=== PATIENT | male | born 1955 | race African-American/Black ===

== ENCOUNTER 2017-11-30 22:46 | Emergency (ER) | payer MEDICARE, OTHER, SELFPAY ==
[2017-11-30 22:52] VITALS: BP 156/73; PULSE 90; RESP 20; TEMP 37.9; O2SAT 96; BMI 38.7
--- NOTE | 2017-11-30 22:54 | ED.MALEGU ---
HPI - Male Genitourinary General Chief complaint: Urogenital-Male Stated complaint: SWELLING AND PAIN IN TESTICLES Time Seen by Provider: 11/30/17 22:54 Source: patient Mode of arrival: ambulatory Limitations: no limitations History of Present Illness HPI Narrative: Patient presents to the emergency department today with a chief complaint of bilateral testicular swelling (left greater than right) and pain for the past few days. He denies any injury nor fever or chills. He denies any dysuria, frequency or urgency. He denies any history of the same. MD Complaint: testicle pain and testicle swelling Onset (ago): day(s) Duration: constant Location: right testicle and left testicle Severity: moderate Quality: aching Exacerbating factors: none Reports denies other symptoms Related Data Previous Rx's Medication Instructions Recorded ciprofloxacin HCl 500 mg PO BID 14 Days #28 tab 12/01/17 Allergies Allergy/AdvReac Type Severity Reaction Status Date / Time Iodine Allergy Unknown Uncoded 10/08/17 11:58 Review of Systems Review of Systems All systems reviewed & are unremarkable except as noted in HPI and below Constitutional Denies chills, Denies fever(s), Denies lethargy and Denies weakness Eyes Denies change in vision, Denies eye discharge, Denies irritation and Denies loss of vision ENT Ears, Nose, Mouth, and Throat: Denies change in voice, Denies neck pain and Denies sore throat Cardiovascular Denies chest pain, Denies irregular heart rhythm, Denies lightheadedness, Denies palpitations, Denies dyspnea, Denies dyspnea on exertion and Denies orthopnea Respiratory Denies cough, Denies dyspnea, Denies dyspnea on exertion and Denies wheezing Gastrointestinal Gastrointestinal: Denies abdominal pain, Denies change in bowel habits, Denies diarrhea, Denies nausea and Denies vomiting Genitourinary Denies hematuria, Denies flank pain, Reports scrotal swelling, Reports testicular mass, Reports testicular pain, Denies urinary incontinence and Denies urinary urgency Musculoskeletal Denies neck pain Integumentary/Breasts Denies pruritus, Denies erythema, Denies rash and Denies wounds Neurologic Denies confusion, Denies loss of vision and Denies weakness Psychiatric Denies anxiety, Denies confusion, Denies depression, Denies homicidal ideation and Denies suicidal ideation Endocrine Denies palpitations Hematologic/Lymphatic Denies easy bruising Allergic/Immunologic Denies wheezing [facility] Medical History Diabetes 1.5, managed as type 2 (Acute) GERD (gastroesophageal reflux disease) (Acute) HTN (hypertension) (Acute) Kidney disease (Acute) Neuropathy (Acute) PAD (peripheral artery disease) (Acute) Social History Smoking Status: Former smoker Exam Narrative Exam Narrative: Pleasant 62-year-old male in no obvious distress Initial Vital Signs Initial Vital Signs: Vital Signs Temperature 100.2 F H 11/30/17 22:52 Pulse Rate 90 11/30/17 22:52 Respiratory Rate 20 11/30/17 22:52 Blood Pressure 156/73 H 11/30/17 22:52 Pulse Oximetry 96 11/30/17 22:52 Const General: cooperative and well developed Nutritional Appearance: well nourished Orientation: alert, awake, oriented x3 and not confused Resp Effort & Inspection: normal respiratory effort, able to speak in complete sentences, no respiratory distress and no use of accessory muscles Auscultation: clear to auscultation bilaterally, no rales, no rhonchi and no wheezes GI Inspection: non-distended Palpation: soft, no hepatosplenomegaly, No guarding, No pulsatile mass and No tender Auscultation: normal bowel sounds Scrotum: scrotal swelling (Examined in standing position.) bilaterally Testes: testicular swelling and testicular tenderness Course Orders Ordered: ED Orders 11/30/17 23:14 US scrotum Stat 11/30/17 23:29 Urine Culture Stat Urine Microscopic Stat 11/30/17 23:34 Basic Metabolic Panel Stat Complete Blood Count AUTO DIFF Stat Prolactin Stat Discontinued Medications Levofloxacin (Levaquin) 500 mg PO NOW ONE Stop: 12/01/17 00:51 Last Admin: 12/01/17 01:07 Dose: 500 mg Consultations Consultation #1: Have spoken with Dr. Rios at [facility] urology. We discussed the patient's history and physical exam findings as well as lab results and ultrasound findings. His recommendation his of fluoroquinolones for 2 weeks with follow-up at primary care 1st and Urology for no improvement Vital Signs - 8 hr 11/30/17 22:52 Temperature 100.2 F H Pulse Rate 90 Respiratory Rate 20 Blood Pressure 156/73 H Pulse Oximetry 96 MDM - Male Genitourinary Differential Diagnosis Likely urinary tract infection, urethritis, epididymitis, prostatitis, acute retention of urine and inguinal hernia Lab Data Attestation: I reviewed the patient's lab results. Result diagrams: 11/30/17 23:34 11/30/17 23:34 Lab Results 11/30/17 11/30/17 11/30/17 Range/Units 23:29 23:34 23:34 WBC 13.1 H (4.5-11.0) X10^3/uL RBC 4.85 (4.5-5.9) X10^6/uL Hgb 13.7 (13.5-17.5) g/dL Hct 41.1 (41-53) % MCV 84.8 (80-100) fL MCH 28.2 (26-34) PG MCHC 33.3 (30-36) % RDW 16.5 H (11.6-14.8) % Plt Count 168 (150-400) X10^3/uL Neut % (Auto) 73.2 (50-75) % Lymph % (Auto) 15.3 L (25-40) % [place] % (Auto) 8.0 (3-14) % Eos % (Auto) 2.5 (2-4) % Baso % (Auto) 1.0 (0-2) % Neut # (Auto) 9600 H (1655-5306) /uL Sodium 142 (137-145) mmol/L Potassium 3.8 (3.4-5.1) mmol/L Chloride 96 L (98-107) mmol/L Carbon Dioxide 34 H (22-32) mmol/L BUN 29 H (9-20) mg/dL Creatinine 1.80 H (0.66-1.25) mg/dL Estimated GFR 38.7 L (>60) mL/min BUN/Creatinine Ratio 16.1 (6-22) Glucose 224 H (80-110) mg/dL Calcium 10.1 (8.4-10.2) mg/dL Prolactin 15.6 (3.7-17.9) ng/mL Urine RBC 0-1/hpf (0-5/HPF) Urine WBC 0-1/hpf (0-5/HPF) Urine Bacteria Many (>30) H (None) Ur Culture Indicated? Specimen cultured Micro UA Comment Not Reportable Imaging Data Testicular US: Radiologist's impression: Findings concerning for bilateral orchitis and left-sided epididymitis. Scrotal wall skin thickening suggests edema versus cellulitis. No findings to suggest torsion. Small bilateral hydroceles larger on left and right Discharge Plan Departure Patient Disposition: Home, Self-Care Clinical Impression: Acute epididymitis, Acute orchitis Instructions: DI for Epididymitis Activity Restrictions/Additional Instructions: *You have been diagnosed with [ acute epididymitis with bilateral orchitis ] *What to do: *Take medications as directed *Follow up with your primary care provider, call later today for an appointment. Additionally, I have provided contact information for [facility]. I consulted Dr. Landry of Urology while you were in the ER. Should you choose to follow up with [facility] at the [facility], [place] please call [phone] *Return to ER if you should have any new, worsening or concerning symptoms Prescriptions: New ciprofloxacin HCl 500 mg tablet 500 mg PO BID 14 Days Qty: 28 RF: 0 Referrals: Brien Laurent MD [Non-Staff] -
--- NOTE | 2017-11-30 23:14 | DI.US.S_ITS ---
PROCEDURE: US SCROTUM INDICATIONS: 62 year-old male with painful bilateral testicular swelling, without injury. TECHNIQUE: Real-time scanning was performed of the scrotum and testicles, with image documentation. Color and pulse Doppler interrogation was performed of both testicles. COMPARISON: None. FINDINGS: Preliminary interpretation rendered by [facility]. Right: Testicle is normal in size at 4.4 x 2.8 x 2.7 cm, and homogenous in echotexture. Epididymis is normal in overall size and morphology. There is trace hydrocele; no varicoceles. Overlying scrotal skin is diffusely thickened. Left: Testicle is normal in size at 3.9 x 3.5 x 2.5 cm, and homogeneous in echotexture. Epididymis is normal in overall size and morphology. There is small hydrocele; no varicoceles. Overlying scrotal skin is diffusely thickened. Doppler: Color and pulse Doppler demonstrate symmetrically increased arterial flow in both testicles. There is also asymmetrically increased vascular flow in the left epididymis. IMPRESSION: 1. Findings worrisome for left epididymitis and bilateral orchitis, with overlying bilateral reactive scrotal skin thickening versus concomitant cellulitis. 2. Small left and trace right scrotal hydroceles. No significant discrepancy with preliminary [employer] report. Dictated by: Ulysses Navarro M.D. on 12/01/2017 at 7:52 Approved by: Ulysses Navarro M.D. on 12/01/2017 at 7:57
[2017-11-30 23:41] LABS: Add Manual Diff / Slide Review NO; Eosinophils Percent Auto 2.5 % (2-4); Hematocrit 41.1 % (41-53); Hemoglobin 13.7 g/dL (13.5-17.5); Lymphocytes Percent Auto 15.3 % (25-40); Mean Corpuscular HGB Conc 33.3 % (30-36); Mean Corpuscular Hemoglobin 28.2 PG (26-34); Mean Corpuscular Volume 84.8 fL (80-100); Neutrophils Absolute Auto 9600 /uL (3000-5900); Neutrophils Percent Auto 73.2 % (50-75); Platelet Count 168 X10^3/uL (150-400); Red Blood Cell Count 4.85 X10^6/uL (4.5-5.9); Red Cell Distribution Width 16.5 % (11.6-14.8); White Blood Cell Count 13.1 X10^3/uL (4.5-11.0)
[2017-11-30 23:44] LABS: Bacteria Urine Many (>30); Culture Indicated Urine Specimen Cultured; RBC Urine 0-1/HPF (0-5/HPF); WBC Urine 0-1/HPF (0-5/HPF)
[2017-11-30 23:53] LABS: BUN Creatinine Ratio 16.1 (6-22); Blood Urea Nitrogen 29 mg/dL (9-20); Calcium 10.1 mg/dL (8.4-10.2); Carbon Dioxide 34 mmol/L (22-32); Chloride 96 mmol/L (98-107); Estimated Glomerular Filt Rate 38.7 mL/min (>60); Glucose 224 mg/dL (80-110); HEMOLYSIS < 15 (0-50); Potassium 3.8 mmol/L (3.4-5.1); Sodium 142 mmol/L (137-145)
[2017-12-01 00:10] LABS: Prolactin 15.6 ng/mL (3.7-17.9)
[2017-12-01] MEDS: levoFLOXacin 500 MG TABLET PO (01:07)
[2017-12-01 01:33] VITALS: BP 157/79; PULSE 92; RESP 18; O2SAT 97
--- NOTE | 2017-12-01 01:34 | PC.NURSE ---
drawn by lab
== END 2017-12-01 01:35 | disposition home or self-care (01) ==
PROVIDERS: Emergency Provider Emergency Medicine
DX: N45.1 Epididymitis (principal); N45.2 Orchitis
CPT/HCPCS: 36415; 76870; 80048; 81003; 81015; 84146; 85025; 87077; 87086; 87186; 99282; 99284

== ENCOUNTER 2018-02-21 20:10 | Emergency (ER) | payer MEDICARE, OTHER, SELFPAY ==
[2018-02-21 20:15] VITALS: BP 149/77; PULSE 66; RESP 18; TEMP 36.3; O2SAT 96; BMI 38.9
--- NOTE | 2018-02-21 20:50 | ED.BACK ---
HPI - Back Pain/Injury General Chief Complaint: Back Pain/Injury Stated Complaint: PAIN RIB AND BACK Time Seen by Provider: 02/21/18 20:50 Related Data Home Medications Medication Instructions Recorded Confirmed amlodipine 10 mg PO BID 02/21/18 02/21/18 aspirin 81 mg DAILY 02/21/18 02/21/18 atorvastatin 02/21/18 carvedilol BID 02/21/18 clonidine HCl BID 02/21/18 clonidine HCl BID 02/21/18 fenofibrate nanocrystallized 02/21/18 [Triglide] furosemide BID 02/21/18 gabapentin 02/21/18 hydralazine BID 02/21/18 indapamide QAM 02/21/18 insulin aspart U-100 [Novolog 30 unit AC 02/21/18 02/21/18 U-100 Insulin aspart] insulin glargine [Lantus U-100 40 unit QPM 02/21/18 02/21/18 Insulin] insulin glargine [Lantus U-100 76 unit QAM 02/21/18 02/21/18 Insulin] metformin 1,000 mg PO BID 02/21/18 02/21/18 nitroglycerin 0.4 mg SUBLINGUAL Q5-15M PRN 02/21/18 02/21/18 omeprazole 2 tab 02/21/18 potassium chloride [Klor-Con M20] 3 tab 02/21/18 Allergies Allergy/AdvReac Type Severity Reaction Status Date / Time Iodine Allergy Unknown Uncoded 10/08/17 11:58 PFSH Medical History Diabetes 1.5, managed as type 2 (Acute) GERD (gastroesophageal reflux disease) (Acute) HTN (hypertension) (Acute) Kidney disease (Acute) Neuropathy (Acute) PAD (peripheral artery disease) (Acute) Social History Smoking Status: Former smoker Exam Initial Vital Signs Initial Vital Signs: Vital Signs Temperature 97.4 F L 02/21/18 20:15 Pulse Rate 66 02/21/18 20:15 Respiratory Rate 18 02/21/18 20:15 Blood Pressure 149/77 H 02/21/18 20:15 Pulse Oximetry 96 02/21/18 20:15 Course Vital Signs - 8 hr 02/21/18 20:15 Temperature 97.4 F L Pulse Rate 66 Respiratory Rate 18 Blood Pressure 149/77 H Pulse Oximetry 96 Discharge Plan Departure Prescriptions: No Action atorvastatin 40 mg tablet RF: 0 gabapentin 800 mg tablet RF: 0 carvedilol 25 mg tablet BID RF: 0 aspirin 81 mg tablet,delayed release (DR/EC) 81 mg DAILY RF: 0 fenofibrate nanocrystallized [Triglide] 160 mg tablet RF: 0 insulin glargine [Lantus U-100 Insulin] 100 unit/mL solution 76 unit QAM RF: 0 insulin glargine [Lantus U-100 Insulin] 100 unit/mL solution 40 unit QPM RF: 0 amlodipine 10 mg tablet 10 mg PO BID RF: 0 omeprazole 20 mg capsule,delayed release(DR/EC) 2 tab RF: 0 insulin aspart U-100 [Novolog U-100 Insulin aspart] 100 unit/mL solution 30 unit AC RF: 0 hydralazine 25 mg tablet BID RF: 0 nitroglycerin 0.4 mg Tablet, Sublingual 0.4 mg SUBLINGUAL Q5-15M PRN (Reason: Chest Pain) RF: 0 potassium chloride [Klor-Con M20] 20 mEq tablet,ER particles/crystals 3 tab RF: 0 clonidine HCl 0.2 mg tablet BID RF: 0 clonidine HCl 0.1 mg tablet BID RF: 0 furosemide 40 mg tablet BID RF: 0 indapamide 2.5 mg tablet QAM RF: 0 metformin 500 mg Tablet 1,000 mg PO BID RF: 0
--- NOTE | 2018-02-21 21:52 | PC.NURSE ---
Pt reports right ribs hurt. feels like when they were broken. Increased pain with deep breathing. Lungs clear. Reports pain wraps around to the back. Denies any injury to area.
--- NOTE | 2018-02-21 21:58 | DI.RAD.S_ITS ---
PROCEDURE: XR RIBS RT MIN 3V W CXR 1V INDICATIONS: severe R sided Rib pain, hx fx TECHNIQUE: 4 views of the right ribs were acquired, along with a single view chest. COMPARISON: None. FINDINGS: Surgical changes and devices: None. Bones and chest wall: No fractures or dislocations. No suspicious bony lesions. Overlying soft tissues appear unremarkable. Lungs and pleura: No pleural effusions or pneumothorax. Lungs appear clear. Mediastinum: Mediastinal contours appear normal. Heart size is normal. IMPRESSION: No gross acute right rib fracture. No acute pulmonary pathology. Dictated by: Mark Aldana M.D. on 02/22/2018 at 9:37 Approved by: Mark Aldana M.D. on 02/22/2018 at 9:38
[2018-02-21 22:30] VITALS: BP 143/81; PULSE 64; RESP 18; TEMP 36.7; O2SAT 98
[2018-02-21 22:56] VITALS: BP 150/78; PULSE 66; RESP 14; O2SAT 96
--- NOTE | 2018-02-21 23:34 | ED_ITS ---
HPI - Back Pain/Injury General Chief Complaint: Back Pain/Injury Stated Complaint: PAIN RIB AND BACK Time Seen by Provider: 02/21/18 20:50 Source: patient and family Mode of arrival: ambulatory Limitations: no limitations History of Present Illness HPI Narrative: 62-year-old male with complicated history including hypertension and hyperlipidemia presents with reproducible right-sided rib pain for the past week. He is in the presence of his room as to the story. He states that he had been exerting himself while working on a project at home about a week ago was lifting and pushing heavy objects when he developed this pain. He states the pain is in the region of a formally broken rib. He denies any atypical rash or other symptoms such is dizziness, lightheadedness nor shortness of breath, diaphoresis or vomiting. He states the pain is worse if he presses on it or moves his right arm in addition to taking a deep breath. Denies any specific trauma or other injury. She admittedly is concerned about the rib pain in the absence of an injury because he overheard patient is speaking at the pharmacy whom were talking about a friend that had been diagnosed with lung cancer who is only complaint was rib pain MD Complaint: other Onset (ago): day(s) Duration: constant Similar Symptoms Previously: Yes Severity: moderate Quality: sharp Radiation: flank Severity scale (1-10): 5 Relieving factors: immobilization Exacerbating factors: deep breaths and lifting Associated symptoms: denies other symptoms Related Data Home Medications Medication Instructions Recorded Confirmed amlodipine 10 mg PO BID 02/21/18 02/21/18 aspirin 81 mg DAILY 02/21/18 02/21/18 atorvastatin 40 mg PO DAILY 02/21/18 02/21/18 carvedilol 25 mg PO BID 02/21/18 02/21/18 clonidine HCl 0.1 mg PO BID 02/21/18 02/21/18 clonidine HCl 0.2 mg BID 02/21/18 02/21/18 fenofibrate nanocrystallized 1 tab PO DAILY 02/21/18 02/21/18 [Triglide] furosemide 40 mg PO BID 02/21/18 02/21/18 gabapentin 800 mg PO DAILY 02/21/18 02/21/18 hydralazine 25 mg PO BID 02/21/18 02/21/18 indapamide 1 tab PO QAM 02/21/18 02/21/18 insulin aspart U-100 [Novolog 30 unit AC 02/21/18 02/21/18 U-100 Insulin aspart] insulin glargine [Lantus U-100 40 unit QPM 02/21/18 02/21/18 Insulin] insulin glargine [Lantus U-100 76 unit QAM 02/21/18 02/21/18 Insulin] metformin 1,000 mg PO BID 02/21/18 02/21/18 nitroglycerin 0.4 mg SUBLINGUAL Q5-15M PRN 02/21/18 02/21/18 omeprazole 2 tab PO DAILY 02/21/18 02/21/18 potassium chloride [Klor-Con M20] 3 tab PO DAILY 02/21/18 02/21/18 Allergies Allergy/AdvReac Type Severity Reaction Status Date / Time Iodine Allergy Unknown Uncoded 10/08/17 11:58 Review of Systems Review of Systems All systems reviewed & are unremarkable except as noted in HPI and below Constitutional Denies chills, Denies fever(s), Denies lethargy and Denies weakness Eyes Denies change in vision, Denies eye discharge, Denies irritation and Denies loss of vision ENT Ears, Nose, Mouth, and Throat: Denies change in voice, Denies neck pain and Denies sore throat Cardiovascular Reports chest pain, Denies irregular heart rhythm, Denies lightheadedness, Denies palpitations, Denies dyspnea, Denies dyspnea on exertion and Denies orthopnea Respiratory Denies cough, Denies dyspnea, Denies dyspnea on exertion and Denies wheezing Gastrointestinal Gastrointestinal: Denies abdominal pain, Denies change in bowel habits, Denies diarrhea, Denies nausea and Denies vomiting Genitourinary Denies hematuria, Denies flank pain, Denies urinary incontinence and Denies urinary urgency Musculoskeletal Reports back pain and Denies neck pain Comments: Back pain wraps around from chest Integumentary/Breasts Denies pruritus, Denies erythema, Denies rash and Denies wounds Neurologic Denies confusion, Denies loss of vision and Denies weakness Psychiatric Denies anxiety, Denies confusion, Denies depression, Denies homicidal ideation and Denies suicidal ideation Endocrine Denies palpitations Hematologic/Lymphatic Denies easy bruising Allergic/Immunologic Denies wheezing FOR[facility]LY [facility] Medical History Diabetes 1.5, managed as type 2 (Acute) GERD (gastroesophageal reflux disease) (Acute) HTN (hypertension) (Acute) Kidney disease (Acute) Neuropathy (Acute) PAD (peripheral artery disease) (Acute) Social History Smoking Status: Former smoker Exam Narrative Exam Narrative: 62-year-old male resting comfortably with his Initial Vital Signs Initial Vital Signs: Vital Signs Temperature 97.4 F L 02/21/18 20:15 Pulse Rate 66 02/21/18 20:15 Respiratory Rate 18 02/21/18 20:15 Blood Pressure 149/77 H 02/21/18 20:15 Pulse Oximetry 96 02/21/18 20:15 Const General: cooperative and well developed Nutritional Appearance: well nourished and obese Orientation: alert, awake, oriented x3 and not confused HENMT Head: normocephalic and atraumatic Ears: external ears normal and TM's normal bilaterally Nose: external nose normal and No nasal discharge Face and sinus: sinuses nontender, face symmetric, no sinus tenderness and No dry mucous membranes Mouth: oral mucosae normal and moist mucous membranes Teeth and gingiva: dentition normal Throat: tonsils normal and uvula midline Eyes General: appearance normal, both eyes and all related structures Eyelids: eyelids normal Conjunctivae: conjunctivae normal Sclera: sclerae normal Pupils: PERRL EOM: EOM intact bilaterally Neck Neck: normal visual inspection, trachea midline, No lymphadenopathy, No midline deformity and No JVD Lymphatic: No lymphedema Chest Chest: normal inspection of the chest and localized rib tenderness with anteroposterior compression Resp Effort & Inspection: normal respiratory effort, able to speak in complete sentences, no respiratory distress and no use of accessory muscles Auscultation: clear to auscultation bilaterally, no rales, no rhonchi and no wheezes Cardio Rate: regular rate Rhythm: regular rhythm Heart Sounds: no click, no gallops, no murmurs and no rubs Pulses: normal peripheral pulses GI Inspection: non-distended Palpation: soft, no hepatosplenomegaly, No guarding, No pulsatile mass and No tender Auscultation: normal bowel sounds Back/Spine/Pelvis Back: No CVA tenderness Cervical Spine: cervical ROM normal and No pain with cervical ROM Thoracic/Lumbar Spine: thoracic and lumbar spine normal to inspection Skin General: no rashes or lesions noted, No jaundice and No petechiae Other: Specifically no findings consistent with shingles Neuro General: alert, oriented x3, gait normal and no focal motor deficits Speech: speech normal Extrem General: full ROM, no clubbing, cyanosis or edema, no pedal edema and no calf tenderness Psych Appearance: well kempt Mental Status: mental status grossly normal Attitude: cooperative Thought Content: normal and suicidality Judgment: judgment good Course Orders Ordered: ED Orders 02/21/18 21:58 XR ribs RT min 3V w [id number] Stat Vital Signs - 8 hr 02/21/18 20:15 02/21/18 22:30 02/21/18 22:56 Temperature 97.4 F L 98.1 F Pulse Rate 66 64 66 Respiratory Rate 18 18 14 Blood Pressure 149/77 H 150/78 H Blood Pressure [Left Arm] 143/81 H Pulse Oximetry 96 98 96 [facility] - Back Pain/Injury Medical Records Attestation: I reviewed the patient's medical records. Lab Data Attestation: I reviewed the patient's lab results. Imaging Data Chest x-ray: My impression: [facility] Narrative Medical decision making narrative: Rib fx considered but non noted on xray GB/pancreatitis?liver Dz considered but no belly pain on exam and normal labs Shingles considered but no rash or hypersensitivity Metastatic dz considered but not noted on CXR Cardiac Dz considered but thought less likely by history and physical exam Discharge Plan Departure Patient Disposition: Home Clinical Impression: Pain in rib Discharge Date/Time: 02/21/18 23:04 Interventions: ED Discharge Assessment Last Done: 02/21/18 22:56 Instructions: DI for Atypical Chest Pain Activity Restrictions/Additional Instructions: *You have been diagnosed with [right chest wall ] *What to do: *Take medications as directed: over the counter motrin/ibuprofen *Follow up with your primary care provider in 2-3 days, call for an appointment. Let them know you were seen in the Emergency Department and that we ask that you be seen in follow up *Return to ER if you should have any new, worsening or concerning symptoms , such as [difficulty breathing, fever, chills, increasing pain, painful rash, other concerning symptoms ] Prescriptions: No Action atorvastatin 40 mg tablet 40 mg PO DAILY RF: 0 gabapentin 800 mg tablet 800 mg PO DAILY RF: 0 carvedilol 25 mg tablet 25 mg PO BID RF: 0 aspirin 81 mg tablet,delayed release (DR/EC) 81 mg DAILY RF: 0 fenofibrate nanocrystallized [Triglide] 160 mg tablet 1 tab PO DAILY RF: 0 insulin glargine [Lantus U-100 Insulin] 100 unit/mL solution 76 unit QAM RF: 0 insulin glargine [Lantus U-100 Insulin] 100 unit/mL solution 40 unit QPM RF: 0 amlodipine 10 mg tablet 10 mg PO BID RF: 0 omeprazole 20 mg capsule,delayed release(DR/EC) 2 tab PO DAILY RF: 0 insulin aspart U-100 [Novolog U-100 Insulin aspart] 100 unit/mL solution 30 unit AC RF: 0 hydralazine 25 mg tablet 25 mg PO BID RF: 0 nitroglycerin 0.4 mg Tablet, Sublingual 0.4 mg SUBLINGUAL Q5-15M PRN (Reason: Chest Pain) RF: 0 potassium chloride [Klor-Con M20] 20 mEq tablet,ER particles/crystals 3 tab PO DAILY RF: 0 clonidine HCl 0.2 mg tablet 0.2 mg BID RF: 0 clonidine HCl 0.1 mg tablet 0.1 mg PO BID RF: 0 furosemide 40 mg tablet 40 mg PO BID RF: 0 indapamide 2.5 mg tablet 1 tab PO QAM RF: 0 metformin 500 mg Tablet 1,000 mg PO BID RF: 0 Referrals: Provider,Conversion [Non-Staff] -
== END 2018-02-21 23:04 | disposition home or self-care (01) ==
PROVIDERS: Emergency Provider Emergency Medicine
DX: R07.81 Pleurodynia (principal)
CPT/HCPCS: 71101; 99282; 99283